=== PATIENT | female | born 1995 | race Caucasian/White ===

== ENCOUNTER 2017-10-26 12:17 | Inpatient (IN) | payer MEDICAID, OTHER ==
[~2017-10-26] VITALS: Ht 154.9 cm; Wt 52.1 kg
[2017-10-26 13:41] VITALS: BP 113/61
[2017-10-26] MEDS ORDERED: ZOLPIDEM TARTRATE 10 MG TABLET PO PRN (13:45)
[2017-10-26] MEDS ORDERED: HALOPERIDOL 5 MG TABLET PO PRN (13:45)
[2017-10-26] MEDS ORDERED: LORazepam 2 MG TABLET PO PRN (13:45)
[2017-10-26 13:55] VITALS: BP 137/77
[2017-10-26] MEDS ORDERED: MACR100 PO (14:25)
[2017-10-26 16:22] VITALS: BP 115/70
[2017-10-26] MEDS: NITROFURANTOIN/NITROFURAN MAC 100 MG CAPSULE [MACROBID] PO SCH (16:54)
[2017-10-27 07:56] LABS: BASOPHILS # (AUTO) 0.02 K/uL (0.00-0.20); BASOPHILS % (AUTO) 0.5 % (0.0-2.0); EOSINOPHILS # (AUTO) 0.06 K/uL (0.00-0.70); EOSINOPHILS % (AUTO) 1.62 % (1.0-6.0); HEMOGLOBIN 12.8 g/dL (12.0-16.0); LYMPHOCYTES # (AUTO) 1.2 K/uL (1.0-4.8); LYMPHOCYTES % (AUTO) 34.2 % (22.0-44.0); MEAN CORPUSCULAR HEMOGLOBIN 29.7 pg (26.0-34.0); MEAN CORPUSCULAR HGB CONC 33.6 G/dL (31.0-37.0); MEAN CORPUSCULAR VOLUME 88 fL (80-100); MONOCYTES # (AUTO) 0.5 K/uL (0.1-1.0); NEUTROPHILS # (AUTO) 1.7 K/uL (1.8-7.7); NEUTROPHILS % (AUTO) 48.6 % (40.0-70.0); PLATELET COUNT (AUTO) 136 K/uL (150-450); RED CELL DISTRIBUTION WIDTH 13.5 % (11.5-14.5)
[2017-10-27 08:30] VITALS: BP 104/63
[2017-10-27] MEDS: NITROFURANTOIN/NITROFURAN MAC 100 MG CAPSULE [MACROBID] PO SCH ×2 (08:36→16:21)
[2017-10-27 08:39] LABS: ALANINE AMINOTRANSFERASE 23 U/L (12-78); ALBUMIN 3.7 g/dL (3.4-5.0); ALKALINE PHOSPHATASE 58 U/L (46-116); ANION GAP 6 mmol/L (8-16); ASPARTATE AMINOTRANSFERASE 16 U/L (15-37); BILIRUBIN,TOTAL 0.3 mg/dL (0.1-1.0); CARBON DIOXIDE 27 mmol/L (22-29); CHLORIDE 100 mmol/L (98-107); CHOL/HDL RATIO 2.7 (3.9-5.7); CHOLESTEROL 137 mg/dL (131-200); CREATININE 0.84 mg/dL (0.60-1.30); FREE T4 (FREE THYROXINE) 1.11 ng/dL (0.76-1.46); GLOMERULAR FILTR. RATE CALC > 60 mL/min (>60); GLUCOSE,RANDOM 86 mg/dL (70-110); HCG,QUANTITATIVE < 1 mIU/mL (0-6); HDL CHOLESTEROL 50 mg/dL (40-60); LDL CHOL (CALC.) 69 mg/dL (0-130); POTASSIUM 3.7 mmol/L (3.5-5.1); SODIUM SERUM 133 mmol/L (136-145); THYROID STIMULATING HORMONE 1.63 uIU/mL (0.36-3.74); TOTAL PROTEIN, SERUM 7.5 g/dL (6.4-8.2); TRIGLYCERIDES 92 mg/dL (15-150); UREA NITROGEN, BLOOD 17 mg/dL (7-18)
[2017-10-27 09:44] LABS: HEMOGLOBIN A1C 5.2 % (4.5-6.2)
[2017-10-27] MEDS: FLUoxetine HCL 10 MG CAPSULE PO SCH (12:45)
[2017-10-27 13:27] LABS: PLATELET MORPHOLOGY COMMENT LARGE PLTS PRESENT
[2017-10-27] MEDS ORDERED: ACETAMINOPHEN 325 MG TABLET PO PRN (16:30)
[2017-10-27] MEDS ORDERED: IBUPROFEN 400 MG TABLET PO PRN (16:30)
[2017-10-27 16:43] VITALS: BP 115/75
[2017-10-28] MEDS: FLUoxetine HCL 10 MG CAPSULE PO SCH (08:30)
[2017-10-28] MEDS: NITROFURANTOIN/NITROFURAN MAC 100 MG CAPSULE [MACROBID] PO SCH ×2 (08:30→16:30)
[2017-10-28 09:00] VITALS: BP 109/66
[2017-10-28 09:15] LABS: HEMOGLOBIN A1C 5.3 % (4.5-6.2)
[2017-10-28 09:42] LABS: THYROID STIMULATING HORMONE 1.28 uIU/mL (0.36-3.74)
[2017-10-28 16:06] VITALS: BP 102/67
[2017-10-29 06:59] VITALS: BP 110/72
[2017-10-29 08:39] VITALS: BP 124/75
[2017-10-29] MEDS: NITROFURANTOIN/NITROFURAN MAC 100 MG CAPSULE [MACROBID] PO SCH (09:06)
[2017-10-29] MEDS: FLUoxetine HCL 10 MG CAPSULE PO SCH (09:06)
[2017-10-29] MEDS ORDERED: PROZ10 PO (10:38)
== END 2017-10-29 12:15 | disposition home or self-care (01) | DRG 751 ==
LOC: B3A 13:37
PROVIDERS: ADMIT Psychiatry & Neurology Child & Adolescent Psychiatry; ATTEND Psychiatry & Neurology Child & Adolescent Psychiatry
DX: F33.2 Major depressive disorder, recurrent severe without psychotic features (principal); E87.1 Hypo-osmolality and hyponatremia; N39.0 Urinary tract infection, site not specified; Z87.440 Personal history of urinary (tract) infections; Z88.1 Allergy status to other antibiotic agents
CPT/HCPCS: 83036; 84439; 84443